=== PATIENT | male | born 1980 | race Two or more races ===

== ENCOUNTER 2017-04-25 12:19 | Observation (INO) | payer BC ==
[2017-04-25] MEDS ORDERED: HYDROmorphone 2 MG/ML 1 ML SYRINGE IVP STA (13:25)
--- NOTE | 2017-04-25 13:34 | ED ---
General Adult HPI - General Chief complaint: Abdominal Pain Stated complaint: Abd Pain Time Seen by Provider: 04/25/17 12:40 Source: patient, RN notes reviewed Mode of arrival: ambulatory Limitations: no limitations - History of Present Illness Initial comments: This is a 36-year-old male who presents to the emergency department complaining of lower abdominal pain. Patient states it started 2 days ago became severe yesterday and he had one episode of diarrhea yesterday morning. Patient states he went to [facility] yesterday did a CAT scan without contrast of her kidney stones they did not find any recent home. Patient states today the pain is on both sides but much worse in the right lower quadrant and quite tender in the right upper quadrant as well. Patient states her depressed left-sided does hurt on the right side. denies any nausea vomiting. Patient states he hasn't eaten much because of the pain. Patient states a CAT scan at [facility] was negative. - Related Data Home Medications Medication Instructions Recorded Confirmed No Known Home Medications [No 04/25/17 04/25/17 Known Home Medications] Allergies Allergy/AdvReac Type Severity Reaction Status Date / Time No Known Allergies Allergy Verified 04/25/17 13:48 Review of Systems ROS Statement: Those systems with pertinent positive or pertinent negative responses have been documented in the HPI. ROS Other: All systems not noted in ROS Statement are negative. Past Medical History Past Medical History: No Reported History History of Any Multi-Drug Resistant Organisms: None Reported Past Surgical History: No Surgical Hx Reported Past Psychological History: No Psychological Hx Reported Smoking Status: Former smoker Past Alcohol Use History: None Reported Past Drug Use History: None Reported General Exam - General Exam Comments Initial Comments: GENERAL: Patient is well-developed and well-nourished. Patient is nontoxic and well- hydrated and is in moderate distress. ENT: Neck is soft and supple. No significant lymphadenopathy is noted. Oropharynx is clear. Moist mucous membranes. Neck has full range of motion without eliciting any pain. EYES: The sclera were anicteric and conjunctiva were pink and moist. Extraocular movements were intact and pupils were equal round and reactive to light. Eyelids were unremarkable. PULMONARY: Unlabored respirations. Good breath sounds bilaterally. No audible rales rhonchi or wheezing was noted. CARDIOVASCULAR: There is a regular rate and rhythm without any murmurs gallops or rubs. ABDOMEN: Patient has rebound tenderness in the right or right upper quadrant. SKIN: Skin is clear with no lesions or rashes and otherwise unremarkable. NEUROLOGIC: Patient is alert and oriented x3. Cranial nerves II through XII are grossly intact. Motor and sensory are also intact. Normal speech, volume and content. Symmetrical smile. MUSCULOSKELETAL: Normal extremities with adequate strength and full range of motion. LYMPHATICS: No significant lymphadenopathy is noted PSYCHIATRIC: Normal psychiatric evaluation. Limitations: no limitations Course Vital Signs 04/25/17 12:46 Temperature 98.1 F Pulse Rate 68 Respiratory 20 Rate Blood Pressure 142/77 O2 Sat by Pulse 98 Oximetry Medical Decision Making - Medical Decision Making ultrasound shows no acute abnormality. CAT scan shows no acute abnormality. I spoke with Dr. Kathleen Wang came down and saw the patient. - Lab Data Result diagrams: 04/25/17 13:35 04/25/17 13:35 Lab Results 04/25/17 04/25/17 04/25/17 Range/Units 13:05 13:35 13:35 WBC 6.3 (3.8-10.6) k/uL RBC 5.07 (4.30-5.90) m/uL Hgb 15.0 (13.0-17.5) gm/dL Hct 46.6 (39.0-53.0) % MCV 91.9 (80.0-100.0) fL MCH 29.7 (25.0-35.0) pg MCHC 32.3 (31.0-37.0) g/dL RDW 13.8 (11.5-15.5) % Plt Count 264 (150-450) k/uL Neutrophils % 62 % Lymphocytes % 30 % Monocytes % 5 % Eosinophils % 1 % Basophils % 1 % Neutrophils # 3.9 (1.3-7.7) k/uL Lymphocytes # 1.9 (1.0-4.8) k/uL Monocytes # 0.3 (0-1.0) k/uL Eosinophils # 0.1 (0-0.7) k/uL Basophils # 0.0 (0-0.2) k/uL Sodium 144 (137-145) mmol/L Potassium 4.7 (3.5-5.1) mmol/L Chloride 105 (98-107) mmol/L Carbon Dioxide 27 (22-30) mmol/L Anion Gap 12 mmol/L BUN 11 (9-20) mg/dL Creatinine 0.90 (0.66-1.25) mg/dL Est GFR (MDRD) Af Amer >60 (>60 ml/min/1.73 sqM) Est GFR (MDRD) Non-Af >60 (>60 ml/min/1.73 sqM) Glucose 91 (74-99) mg/dL Calcium 9.8 (8.4-10.2) mg/dL Total Bilirubin 0.6 (0.2-1.3) mg/dL AST 14 L (17-59) U/L ALT 45 (21-72) U/L Alkaline Phosphatase 54 (38-126) U/L Total Protein 7.5 (6.3-8.2) g/dL Albumin 4.7 (3.5-5.0) g/dL Amylase 61 (30-110) U/L Lipase 120 (23-300) U/L Urine Color Light Yellow Urine Appearance Clear (Clear) Urine pH 7.5 (5.0-8.0) Ur Specific [place] 1.006 (1.001-1.035) Urine Protein Negative (Negative) Urine Glucose (UA) Negative (Negative) Urine Ketones Negative (Negative) Urine Blood Negative (Negative) Urine Nitrite Negative (Negative) Urine Bilirubin Negative (Negative) Urine Urobilinogen <2.0 (<2.0) mg/dL Ur Leukocyte Esterase Negative (Negative) Disposition Clinical Impression: Abdominal pain Disposition: ADMITTED IP TO THIS [facility] Referrals: Latricia Jackson MD [Primary Care Provider] - 1-2 days Time of Disposition: 17:17
[2017-04-25] MEDS: SODIUM CHLORIDE 0.9% 1,000 ML IV STA (13:38)
[2017-04-25] MEDS: ONDANSETRON 4 MG/2 ML VIAL IVP STA ×2 (13:38→16:15)
[2017-04-25 13:54] LABS: Basophils % (A) 1 %; Eosinophils # (A) 0.1 k/uL (0-0.7); Eosinophils % (A) 1 %; HCT 46.6 % (39.0-53.0); Lymphocytes # (A) 1.9 k/uL (1.0-4.8); Lymphocytes % (A) 30 %; MCH 29.7 pg (25.0-35.0); MCHC 32.3 g/dL (31.0-37.0); MCV 91.9 fL (80.0-100.0); Mean Platelet Volume 6.7; Monocytes # (A) 0.3 k/uL (0-1.0); Monocytes % (A) 5 %; Neutrophils # (A) 3.9 k/uL (1.3-7.7); Neutrophils % (A) 62 %; Platelet Count 264 k/uL (150-450); RBC 5.07 m/uL (4.30-5.90); RDW 13.8 % (11.5-15.5); WBC 6.3 k/uL (3.8-10.6)
[2017-04-25 13:55] LABS: Appearance,Urine Clear (Clear); Bilirubin,Urine Negative (Negative); Blood,Urine Negative (Negative); Color,Urine Light Yellow; Glucose,Urine (UA) Negative (Negative); Ketones,Urine Negative (Negative); Leukocyte Esterase,Urine Negative (Negative); Nitrite,Urine Negative (Negative); PH, Urine 7.5 (5.0-8.0); Protein,Urine Negative (Negative); Specific Gravity,Urine 1.006 (1.001-1.035); Urobilinogen,Urine <2.0 mg/dL (<2.0)
[2017-04-25 14:08] LABS: ALT 45 U/L (21-72); AST 14 U/L (17-59); Albumin 4.7 g/dL (3.5-5.0); Alkaline Phosphatase 54 U/L (38-126); Amylase 61 U/L (30-110); Anion Gap 12 mmol/L; Blood Urea Nitrogen 11 mg/dL (9-20); Calcium 9.8 mg/dL (8.4-10.2); Carbon Dioxide 27 mmol/L (22-30); Chloride 105 mmol/L (98-107); Glucose 91 mg/dL (74-99); Lipase 120 U/L (23-300); Potassium 4.7 mmol/L (3.5-5.1); Sodium 144 mmol/L (137-145); Total Bilirubin 0.6 mg/dL (0.2-1.3); Total Protein 7.5 g/dL (6.3-8.2)
[2017-04-25] MEDS ORDERED: RX INFO: IV CONTRAST WAS GIVEN 1 EACH MISC MISCELLANE PRN (14:30)
--- NOTE | 2017-04-25 15:18 | XR ---
EXAMINATION TYPE: XR KUB DATE OF EXAM: 04/25/2017 1:51 PM CLINICAL HISTORY: Abdominal pain TECHNIQUE: 2 upright views the abdomen were obtained COMPARISON: None. FINDINGS: Scattered gas is seen in non-distended small bowel loops. Gas and fecal material is seen in non-distended colon. There is no visceromegaly, pneumoperitoneum, or abnormal calcification apprecia adry. The lung bases are clear and the osseous structures are intact. There is no evidence of free int raperitoneal air. IMPRESSION: Overall nonobstructive bowel gas pattern.
--- NOTE | 2017-04-25 15:31 | CT ---
EXAMINATION TYPE: CT abdomen pelvis w con DATE OF EXAM: 04/25/2017 COMPARISON: NONE HISTORY: Right lower abdominal pain with diarrhea. CT DLP: 626.3 mGycm Automated exposure control for dose reduction was used. TECHNIQUE: Helical acquisition of images was performed from the lung bases through the pelvis. CONTRAST: Performed without Oral Contrast and with IV Contrast, patient injected with 100 mL of Omnipaque 300. FINDINGS: LUNG BASES: No significant abnormality is appreciated. LIVER/GB: No significant abnormality is appreciated. PANCREAS: No significant abnormality is seen. SPLEEN: No significant abnormality is seen. ADRENALS: No significant abnormality is seen. KIDNEYS: No significant abnormality is seen. FREE AIR: No free air is visualized. RETROPERITONEAL ADENOPATHY: None visualized REPRODUCTIVE ORGANS: No significant abnormality is seen URINARY BLADDER: There is a tiny focus of nondependent air of unknown significance or etiology. PELVIC ADENOPATHY: None visualized. OSSEOUS STRUCTURES: No significant abnormality is seen. BOWEL: The appendix is visualized, and is normal. There is vague hyperemia identified in the colon e specially in the descending colon of unknown significance, but mild colitis is certainly possible. Th ere is no abnormal bowel wall thickening. OTHER: None IMPRESSION: THE APPENDIX IS VISUALIZED, AND IS NORMAL. HYPEREMIA WITH VAGUE PERICOLONIC INFILTRATION OF THE FAT IN THE DESCENDING COLON OF UNKNOWN SIGNIFICA NCE. FINDINGS COULD BE ON THE BASIS OF MILD UNCOMPLICATED COLITIS. TINY FOCUS OF AIR IN THE NONDEPENDENT URINARY BLADDER OF UNKNOWN ETIOLOGY OR SIGNIFICANCE.
--- NOTE | 2017-04-25 16:56 | US ---
EXAMINATION TYPE: US gallbladder DATE OF EXAM: 04/25/2017 COMPARISON: CT 04/25/2017 CLINICAL HISTORY: RUQ Pain. Difficult and limited exam due to overlying bowel gas and patient pain. P atient unable to tolerate pressure from probe. EXAM MEASUREMENTS: Liver Length: 11.7 cm Gallbladder Wall: 0.25 cm CBD: 0.4 cm Right Kidney: 10.2 x 5.8 x 5.2 cm Pancreas: Obscured by bowel gas Liver: wnl as visualized. Limited visualization due to overlying bowel gas Gallbladder: No stones or sludge visualized Evidence for sonographic Amato's sign: No, patient was in pain all over during exam CBD: wnl as visualized, distal portion obscured by bowel gas Right Kidney: No hydronephrosis or masses seen IMPRESSION: No significant findings.
--- NOTE | 2017-04-25 17:04 | P.GSHP ---
History of Present Illness H&P Date: 04/25/17 Chief Complaint: Abdominal pain Patient presents to the ER today with complaints of abdominal pain that began 2 evenings ago. Pain is mostly right-sided. Slightly diminished appetite. No nausea or vomiting. No fevers or chills. No history of similar events. Pain radiates around to the right side somewhat. No dysuria or hematuria. No prior kidney stones or gallstones. Had episodes of loose stools 2 mornings ago. He went to [facility] yesterday and had a noncontrast CAT scan. He was told everything was normal and he was discharged home. He presented to our emergency department today. CBC and CMP appears normal. Amylase lipase normal. Urinalysis normal. Computed tomography scan abdomen and pelvis with contrast appears normal. Ultrasound of the abdomen showed no abnormalities of the gallbladder. He and his both had a cold last weekend. His cold-like symptoms have resolved. He says from yesterday to today the pain did not change but likewise did not improve. - Review of Systems Comment: The patient denies any acute changes in vision or hearing, no dysphagia or odynophagia, no chest pain or shortness of breath, no dysuria or hematuria, no headache, no runny nose, no rectal bleeding or melena, no unexplained weight loss Past Medical History Past Medical History: No Reported History History of Any Multi-Drug Resistant Organisms: None Reported Past Surgical History: No Surgical Hx Reported Past Psychological History: No Psychological Hx Reported Smoking Status: Former smoker Past Alcohol Use History: None Reported Past Drug Use History: None Reported Medications and Allergies Home Medications Medication Instructions Recorded Confirmed Type No Known Home Medications [No 04/25/17 04/25/17 History Known Home Medications] Allergies Allergy/AdvReac Type Severity Reaction Status Date / Time No Known Allergies Allergy Verified 04/25/17 13:48 Surgical - Exam Vital Signs Temp Pulse Resp BP Pulse Ox 98.1 F 68 20 142/77 98 04/25/17 12:46 04/25/17 12:46 04/25/17 12:46 04/25/17 12:46 04/25/17 12:46 Physical exam: General: Well-developed, well-nourished HEENT: Normocephalic, sclerae nonicteric Abdomen: Right-sided abdominal tenderness right lower quadrant more than upper quadrant, some voluntary guarding, no rebound, no left-sided tenderness, nondistended Extremities: No edema Neuro: Alert and oriented Results - Labs 04/25/17 13:35 04/25/17 13:35 Abnormal Lab Results - Last 24 Hours (Table) 04/25/17 Range/Units 13:35 AST 14 L (17-59) U/L Diabetes panel 04/25/17 Range/Units 13:35 Sodium 144 (137-145) mmol/L Potassium 4.7 (3.5-5.1) mmol/L Chloride 105 (98-107) mmol/L Carbon Dioxide 27 (22-30) mmol/L BUN 11 (9-20) mg/dL Creatinine 0.90 (0.66-1.25) mg/dL Glucose 91 (74-99) mg/dL Calcium 9.8 (8.4-10.2) mg/dL AST 14 L (17-59) U/L ALT 45 (21-72) U/L Alkaline Phosphatase 54 (38-126) U/L Total Protein 7.5 (6.3-8.2) g/dL Albumin 4.7 (3.5-5.0) g/dL Calcium panel 04/25/17 Range/Units 13:35 Calcium 9.8 (8.4-10.2) mg/dL Albumin 4.7 (3.5-5.0) g/dL Pituitary panel 04/25/17 Range/Units 13:35 Sodium 144 (137-145) mmol/L Potassium 4.7 (3.5-5.1) mmol/L Chloride 105 (98-107) mmol/L Carbon Dioxide 27 (22-30) mmol/L BUN 11 (9-20) mg/dL Creatinine 0.90 (0.66-1.25) mg/dL Glucose 91 (74-99) mg/dL Calcium 9.8 (8.4-10.2) mg/dL Adrenal panel 04/25/17 Range/Units 13:35 Sodium 144 (137-145) mmol/L Potassium 4.7 (3.5-5.1) mmol/L Chloride 105 (98-107) mmol/L Carbon Dioxide 27 (22-30) mmol/L BUN 11 (9-20) mg/dL Creatinine 0.90 (0.66-1.25) mg/dL Glucose 91 (74-99) mg/dL Calcium 9.8 (8.4-10.2) mg/dL Total Bilirubin 0.6 (0.2-1.3) mg/dL AST 14 L (17-59) U/L ALT 45 (21-72) U/L Alkaline Phosphatase 54 (38-126) U/L Total Protein 7.5 (6.3-8.2) g/dL Albumin 4.7 (3.5-5.0) g/dL Assessment and Plan (1) Abdominal pain Narrative/Plan: Patient with right-sided abdominal pain. Etiology unclear at this time. Could represent mesenteric adenitis related to the recent viral infection. We'll check lactic acid level. Repeat labs tomorrow. We'll monitor closely. Current Visit: Yes Status: Acute Code(s): R10.9 - UNSPECIFIED ABDOMINAL PAIN SNOMED Code(s): 81874311
[2017-04-25] MEDS: KETOROLAC 30 MG/ML 1 ML VIAL IVP SCH ×2 (18:37→23:00)
[2017-04-25 18:44] VITALS: BMI 27.3
[2017-04-25] MEDS: D5-0.45% NACL WITH KCL 20MEQ/L 1,000 ML IV SCH (18:46)
[2017-04-25 19:50] VITALS: RESP 18
[2017-04-25] MEDS: HYDROmorphone 2 MG/ML 1 ML SYRINGE IVP PRN (21:17)
[2017-04-25] MEDS: FAMOTIDINE 20 MG TAB PO SCH (21:18)
[2017-04-25] MEDS: HEPARIN SODIUM,PORCINE 5,000 UNIT/ML 1 ML VIAL SQ SCH (23:01)
[2017-04-26] MEDS: D5-0.45% NACL WITH KCL 20MEQ/L 1,000 ML IV SCH ×2 (00:46→07:32)
[2017-04-26] MEDS: KETOROLAC 30 MG/ML 1 ML VIAL IVP SCH ×2 (05:03→12:35)
[2017-04-26 07:45] LABS: Basophils % (A) 1 %; Eosinophils # (A) 0.1 k/uL (0-0.7); Eosinophils % (A) 2 %; HCT 43.3 % (39.0-53.0); HGB 13.6 gm/dL (13.0-17.5); Lymphocytes # (A) 1.5 k/uL (1.0-4.8); Lymphocytes % (A) 34 %; MCH 29.6 pg (25.0-35.0); MCHC 31.5 g/dL (31.0-37.0); MCV 94.1 fL (80.0-100.0); Mean Platelet Volume 7.1; Monocytes # (A) 0.4 k/uL (0-1.0); Monocytes % (A) 8 %; Neutrophils # (A) 2.5 k/uL (1.3-7.7); Neutrophils % (A) 54 %; Platelet Count 244 k/uL (150-450); RDW 13.9 % (11.5-15.5); WBC 4.6 k/uL (3.8-10.6)
[2017-04-26 07:53] LABS: ALT 38 U/L (21-72); AST 10 U/L (17-59); Alkaline Phosphatase 45 U/L (38-126); Anion Gap 10 mmol/L; Blood Urea Nitrogen 10 mg/dL (9-20); Calcium 9.5 mg/dL (8.4-10.2); Carbon Dioxide 31 mmol/L (22-30); Chloride 103 mmol/L (98-107); Glucose 101 mg/dL (74-99); Sodium 144 mmol/L (137-145); Total Bilirubin 0.5 mg/dL (0.2-1.3); Total Protein 6.3 g/dL (6.3-8.2)
[2017-04-26] MEDS: HEPARIN SODIUM,PORCINE 5,000 UNIT/ML 1 ML VIAL SQ SCH (07:59)
[2017-04-26] MEDS: FAMOTIDINE 20 MG TAB PO SCH (07:59)
[2017-04-26] MEDS: HYDROmorphone 2 MG/ML 1 ML SYRINGE IVP PRN (08:01)
[2017-04-26 08:04] VITALS: BP 121/72; PULSE 58; TEMP 97.6
--- NOTE | 2017-04-26 10:16 | CONS ---
CONSULTATION DATE OF CONSULTATION: 04/26/17 REQUESTING PHYSICIAN: Dr. Frye. REASON FOR CONSULTATION: Right lower quadrant abdominal pain. HISTORY OF PRESENT ILLNESS: The patient is a 36-year-old pleasant white male came to the emergency room complaining of right -sided abdominal pain for the last 2 days duration. He was at work on Thursday and in the afternoon, the pain got very intense and he went to the emergency room at [facility] where he had a CT of the abdomen and pelvis done and was told it was normal and was discharged home. He went home and tried to eat something. The pain continued to progressively get worse and yesterday it was much worse, came back into the emergency room at [facility] and subsequently admitted to observation for further evaluation. He did have a CT of the abdomen and pelvis done in the emergency room with contrast that was completely normal. Subsequent to that, he also had ultrasound of the abdomen done that showed normal-appearing gallbladder. The patient is presently admitted to the hospital. He still has pain at the same intensity. It waxes and wanes. Denies any nausea, vomiting. He had some diarrhea yesterday morning, but had only 1 bowel movement with no bleeding. No fever, chills, or night sweats. Never had similar symptoms. No family history of inflammatory bowel disease. No recent weight loss. No fever, chills, night sweats. PAST MEDICAL HISTORY: Unremarkable. PAST SURGICAL HISTORY: Unremarkable. MEDICATIONS: Medications at home none. ALLERGIES: No known drug allergies. SOCIAL HISTORY: Former smoker. No alcohol use. FAMILY HISTORY: Unremarkable. REVIEW OF SYSTEMS: Cardiopulmonary: No chest pain, shortness of breath. : No dysuria, hematuria. Musculoskeletal unremarkable. Skin unremarkable. Endocrine unremarkable. Psychiatric: Unremarkable. Neurological: Unremarkable. ENT vision unremarkable. Constitutional: No recent weight loss. No fever, chills, night sweats. PHYSICAL EXAMINATION: Blood pressure 103/59, pulse 73, temperature 97.9. HEENT examination unremarkable. Conjunctivae pink. Sclerae anicteric. Oral cavity no lesions. Neck: No jugular venous distention or lymph node enlargement. Chest was clear to auscultation. HEART: Regular rate and rhythm. ABDOMEN: Soft. There was tenderness in the right lower quadrant area as well as in the right upper quadrant area. Bowel sounds are positive. No organomegaly. Extremities: No pedal edema. Skin: No rashes. NEUROLOGIC: Alert and oriented x3. No focal deficits. LAB: WBC is 4.6, hemoglobin 13.6, platelets are normal. Basic metabolic panel is within normal limits. Amylase and lipase is normal. CT of the abdomen: The appendix is visualized and appeared normal. There is some vague pericolonic infiltration of the fat in the descending colon of unknown significance. Ultrasound of the abdomen was also normal. IMPRESSION: This is a patient who presents to the hospital with acute onset of right lower quadrant abdominal pain for [address] of the abdomen at [facility] 2 days ago was unremarkable. He presents to [facility] yesterday for the same ongoing pain and repeat CT with contrast. CT of the abdomen and pelvis with contrast is unremarkable and no evidence of acute appendicitis. He was evaluated by Dr. Frye who does not think he needs any surgical intervention at the present time. The patient never had symptoms in the past. At this time, with this ongoing abdominal pain mostly in the right lower quadrant area, possibility of inflammatory bowel disease could be a consideration. Surprisingly CT scan did not show any thickening of the small bowel. RECOMMENDATIONS: 1. Clear liquid diet. 2. Pain medications as needed. 3. We will schedule him for a small bowel follow-through tomorrow to evaluate the small bowel and rule out inflammatory bowel disease. PLAN: Was discussed with the patient as well as his who is at the bedside. Thank you for this consultation. PEGGY / ZACHARY: [id number] /
--- NOTE | 2017-04-26 12:07 | P.PN ---
Subjective Progress Note Date: 04/26/17 Principal diagnosis: Abdominal pain Patient says abdominal pain persists. Does wax and wane slightly. No nausea or vomiting. He is afebrile. White blood cell count is normal. Lactic acid is normal. He was seen by GI on consultation this morning and a small bowel series was advised. Objective - Vital Signs Vital signs: Vital Signs Temp 97.6 F 04/26/17 08:00 Pulse 58 L 04/26/17 08:00 Resp 18 04/26/17 08:00 BP 121/72 04/26/17 08:00 Pulse Ox 97 04/26/17 08:00 Intake & Output 04/25/17 04/26/17 04/26/17 18:59 06:59 18:59 Weight 83.915 kg 83 kg Other: Voiding Method Toilet Toilet # Voids 3 2 - Exam Abdomen: Soft, nondistended, persistent right lower quadrant tenderness - Labs CBC & Chem 7: 04/26/17 06:31 04/26/17 06:31 Labs: Abnormal Lab Results - Last 24 Hours (Table) 04/25/17 04/25/17 04/26/17 Range/Units 13:35 21:50 06:31 Carbon Dioxide 31 H (22-30) mmol/L Glucose 101 H (74-99) mg/dL Plasma Lactic Acid Max 0.6 L (0.7-2.0) mmol/L AST 14 L 10 L (17-59) U/L Assessment and Plan (1) Abdominal pain Narrative/Plan: Liquid diet. Check small bowel series. Repeat labs tomorrow. Current Visit: Yes Status: Acute Code(s): R10.9 - UNSPECIFIED ABDOMINAL PAIN SNOMED Code(s): 38714213
--- NOTE | 2017-04-26 20:54 | CONS ---
CONSULTATION SUBJECTIVE: 36-year-old white male complaining of right flank, right lower quadrant abdominal pain for medical management consult. He is admitted by surgeon a couple days now and apparently CT of the abdomen was negative. He states he has got pain in his right lower quadrant radiating to the right flank, but not in his back. MEDICATIONS: See old records. PAST MEDICAL HISTORY: Medical history see old records. PAST SURGICAL HISTORY: See old records. PHYSICAL EXAMINATION: Vital signs stable. Afebrile. Cardiovascular S1, S2. Lungs clear. GI: Tenderness to palpation right lower quadrant. Mild guarding. Hematology negative Homans. Integument normal. Normal skin turgor. ASSESSMENT: Acute abdominal pain, unclear etiology. Await for surgical recommendations. We will review CT scans and labs. Please see further orders. MMODL / IJN: [id number] /
--- NOTE | 2017-05-19 12:28 | P.DS ---
Providers Date of admission: 04/25/17 17:07 Attending physician: Juan A Frye Consults: 04/25/17 17:04 Consult Physician Routine Consulting Provider: Иван Ortiz Consult Reason/Comments: med mgmt Do you want consulting provider notified?: Yes Primary care physician: Latricia Jackson - Discharge Diagnosis(es) (1) Abdominal pain Patient is hospitalized with right-sided abdominal pain. Consults were placed to both GI and medicine. Etiology for the patient's pain was unclear. For that reason he was being observed. The patient left AGAINST MEDICAL ADVICE during this hospitalization. Apparently his pain had improved at that point. Status: Acute Plan - Discharge Summary Discharge Rx Participant: No New Discharge Prescriptions: No Action No Known Home Medications [No Known Home Medications] Discharge Medication List No Known Home Medications [No Known Home Medications] 04/25/17 [History] Follow up Appointment(s)/Referral(s): Latricia Jackson MD [Primary Care Provider] - 1-2 days Discharge Disposition: Left Against Medical Advice
== END 2017-04-26 12:38 | disposition left against medical advice (07) ==
LOC: EC 12:19 → 3SUR 17:07
PROVIDERS: ADMIT Surgery; ATTEND Surgery
DX: R10.31 Right lower quadrant pain (principal); R10.11 Right upper quadrant pain; R10.32 Left lower quadrant pain; Z87.891 Personal history of nicotine dependence
CPT/HCPCS: 96376 ×2; 96361 ×2; 96372 ×2; 96375 ×2; 96374; 99285; 36415; 80053 ×2; 82150; 83605; 83690; 85025 ×2; 81003; 74018; 76705; 74177; G0378 ×2; J1170 ×2; J1644 ×2; J2405; J1885 ×2; Q9967